=== PATIENT | female | born 1975 | race Caucasian/White ===

== ENCOUNTER 2019-11-11 12:31 | Emergency (ER) | payer OTHER ==
[~2019-11-11] VITALS: Ht 167.6 cm; Wt 69.0 kg
[2019-11-11 12:42] VITALS: BP 130/81
== END 2019-11-11 14:11 | disposition home or self-care (01) ==
LOC: ER 12:31
DX: S93.401A Sprain of unspecified ligament of right ankle, initial encounter (principal); F17.210 Nicotine dependence, cigarettes, uncomplicated; X50.1XXA Overexertion from prolonged static or awkward postures, initial encounter; Y93.89 Activity, other specified; Y92.89 Other specified places as the place of occurrence of the external cause; Y99.8 Other external cause status